=== PATIENT | female | born 1935 | race African-American/Black ===

== ENCOUNTER → 2018-08-31 | Outpatient (CLI) | payer MEDICARE, OTHER ==
--- NOTE | 2018-08-31 15:45 | RAD ---
Single AP view both knees in the standing position without comparison for bilateral knee pain, worse on the left, painful degenerative joint disease of both knees. FINDINGS: The right knee demonstrates lateral joint compartment osteoarthritis with narrowing and osteophytosis and sclerosis and subchondral cyst formation. The left knee is notable for bicompartmental osteoarthritis which is fairly symmetric though the lateral osteophytes are pronounced. No fracture or acute osseous abnormality. IMPRESSION: 1. 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 Electronically signed by: Binh Salguero MD (08/31/2018 3:41 PM) [id number]
== END | disposition home or self-care (01) ==
LOC: RAD 13:52
PROVIDERS: ATTEND Physical Medicine & Rehabilitation
DX: M17.0 Bilateral primary osteoarthritis of knee (principal); M25.762 Osteophyte, left knee
CPT/HCPCS: 73565